=== PATIENT | female | born 2000 | race Caucasian/White ===

== ENCOUNTER → 2019-01-09 | Outpatient (CLI) | payer BC ==
--- NOTE | 2019-01-09 15:46 | Diagnostic Imaging Report ---
INDICATION: Right lower quadrant pain and hematuria. TIME OF EXAM: 03:26 p.m. Bowel gas pattern is unremarkable. No definite radiopaque urinary tract calculi are seen. No free air is detected. IMPRESSION: No acute abnormality is detected. Dictated by: Dictated on workstation # [id number]
== END ==
LOC: RAD 15:06
PROVIDERS: ATTEND Internal Medicine
DX: R10.31 Right lower quadrant pain (principal); R31.9 Hematuria, unspecified
CPT/HCPCS: 74019

== ENCOUNTER 2021-09-10 02:33 | Emergency (ER) | payer BC ==
[~2021-09-10] VITALS: Ht 163 cm; Wt 63.5 kg
[2021-09-10] MEDS ORDERED: NORE-58 (02:53)
[2021-09-10] MEDS ORDERED: TETANUS,DIPTH,PERTUSS P/F (BOOSTRIX) 0.5 ML VIAL IM ONE (03:00)
--- NOTE | 2021-09-10 04:08 | Diagnostic Imaging Report ---
PROCEDURE: CT head and CT cervical spine without contrast. TECHNIQUE: Multiple contiguous axial images were obtained through the brain and cervical spine without the use of intravenous contrast. Sagittal and coronal reformations through the cervical spine were then performed. Auto Exposure Controls were utilized during the CT exam to meet ALARA standards for radiation dose reduction. INDICATION: Fall. Neck pain. Scalp laceration. COMPARISON: None. FINDINGS: CT head: No large acute territorial ischemia, mass, or hemorrhage. No midline shift or mass effect. The ventricles, cortical sulci, and basilar cisterns are patent and unremarkable. The calvarium is intact. The visualized paranasal sinuses are clear. CT cervical spine: No acute fracture or dislocation is seen in the cervical spine. No focal osseous lesions. Vertebral body heights are well-maintained. The craniocervical junction is well-maintained. Soft tissues of the neck are unremarkable. The included lung apices are clear. IMPRESSION: 1. No hemorrhage or focal intra-axial mass. No CT evidence of large acute territorial ischemia. 2. No acute fracture or dislocation in the cervical spine. Dictated by: Dictated on workstation # [id number]
--- NOTE | 2021-09-10 04:17 | ED Head Injury ---
General Chief Complaint: Laceration Stated Complaint: FALL,HEAD LAC Nursing Triage Note: approx 2cm laceration to posterior scalp s/p fall from standing position approx. 0130. pt denies other injuries. Allergies and Home Medications Allergies Coded Allergies: No Known Drug Allergies (Unverified , 09/10/21) Patient Home Medication List Norethindrone-E.estradiol-Iron (Husam Fe 1-20 Tablet) 1 Each Tablet, (Reported) Entered as Reported by: QIAN JOHNSON on 09/10/21252 Last Action: New Order Past Rjiltid-Ktrhdp-Pzypka Hx Patient Social History Tobacco Use?: Yes Use of E-Cig and/or Vaping dev: Yes Substance use?: No Alcohol Use?: Yes Alcohol Frequency: Once in a while Pt feels they are or have been: No Past Medical History Last Menstrual Period: Sep 10, 2021 Physical Exam Vital Signs Vital Signs - First Documented 09/10/21 02:46 Temp 37.0 Pulse 119 Resp 16 B/P (MAP) 137/88 (104) Pulse Ox 100 O2 Delivery Room Air Capillary Refill : Less Than 3 Seconds Height, Weight, BMI Height: '" Weight: lbs. oz. kg; 23.00 BMI Method: Progress/Results/Core Measures Results/Orders My Orders Orders - COREY FRAGA DO Ct Head/Cervical Spine Wo (09/10/21 02:53) Dipht,Pertuss(Acell),Tet Adult (Boostrix (09/10/21 03:00) Medications Given in ED Current Medications Medications Dose Ordered Sig/Nito Route Start Time Stop Time Status Last Admin Dose Admin Diphtheria/ Tetanus/Acell Pertussis 0.5 ml ONCE ONCE IM 09/10/21 03:00 09/10/21 03:01 DC 09/10/21 03:06 0.5 ML Vital Signs/I&O 09/10/21 02:46 Temp 37.0 Pulse 119 Resp 16 B/P (MAP) 137/88 (104) Pulse Ox 100 O2 Delivery Room Air Blood Pressure Mean: 104 Departure Impression Primary Impression: Head injury, closed, without LOC Additional Impressions: Occipital scalp laceration CERVICAL SPINE STRAIN Alcohol use ALCOHOL USE Hhltlbxund-oyckaploi-tzillwj (DPT) vaccination administered at current visit Disposition: 01 HOME, SELF-CARE Condition: Stable Departure-Patient Inst. Decision time for Depature: 04:15 Referrals: NO,LOCAL PHYSICIAN (PCP) Primary Care Physician ESTEFANIA AZAR MD Patient Instructions: Alcohol Intoxication ED, Concussion, Adult ED, Diphtheria and Tetanus Toxoids, and Acellular Pertussis Vaccine, Laceration Repair With [place] (DC), Neck Sprain (DC) Add. Discharge Instructions: ICE TO AREA AT 20 MINUTE INTERVALS TYLENOL NEEDED FOR PAIN CLEAN WOUND TWICE A DAY WITH ANTIBACTERIAL SOAP AND WATER ANA OUT IN 10 DAYS--RETURN TO ER FOR REMOVAL--DO NOT ATTEMPT TO REMOVE AT HOME All discharge instructions reviewed with patient and/or family. Voiced understanding. COREY FRAGA DO Sep 10, 2021 04:16
[2021-09-10 04:19] VITALS: BP 120/70
== END 2021-09-10 04:24 | disposition home or self-care (01) ==
LOC: EDUNIT# 02:33 → ER 02:37
DX: S01.01XA Laceration without foreign body of scalp, initial encounter (principal); S16.1XXA Strain of muscle, fascia and tendon at neck level, initial encounter; S09.90XA Unspecified injury of head, initial encounter; F10.99 Alcohol use, unspecified with unspecified alcohol-induced disorder; Z23 Encounter for immunization; Z72.0 Tobacco use; W18.30XA Fall on same level, unspecified, initial encounter
CPT/HCPCS: 12001; 70450; 72125; 90715